=== PATIENT | female | born 1965 | race Caucasian/White ===

== ENCOUNTER 2016-10-23 22:09 | Emergency (ER) | payer OTHER ==
[~2016-10-23] VITALS: Ht 170.2 cm; Wt 51.8 kg
[2016-10-23 22:13] VITALS: BP 119/73; PULSE 85; RESP 16; O2SAT 99
--- NOTE | 2016-10-23 22:39 | ED.REPORT ---
HPI-Trauma Minor / Fall Date of Service Oct 23, 2016 ED Provider: Jalen Umanzor DO Pt is an otherwise healthy 51 year old female with a history of alcoholism who presents to the ED after a needle stick to her left 1st finger prior to arrival. She denies any other symptoms. 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 The pt attempted to treat the wound with rubbing alcohol. She reports that she is not an IV drug user. Nursing Notes Stated Complaint: DIRTY NEEDLE STICK Chief Complaint: General Complaint Nursing Notes Reviewed: Yes Allergies: Coded Allergies: aspirin (Verified Allergy, Severe, 11/13/14) codeine (Verified Allergy, Severe, 11/13/14) hydrocodone (Verified Allergy, Severe, 11/13/14) ibuprofen (Verified Allergy, Severe, 11/13/14) General Time Seen by MD: 22:35 Chief Complaint Other (Needle stick) Hx Obtained From: Patient Arrived By: Walk-in Onset Occurred: Just prior to arrival Symptom Duration: Since onset Location: Hand left Quality: Painful Severity: Current: Mild Severity: Maximum: Mild Recent Healthcare: No recent doctor visit, No recent hospitalization Similar Sx Previous: No Past Medical History Past Medical History hx of anorexia depression migraines (distant past) Past Surgical History none reported Smoking History Never Smoker Social History Alcohol Use: Denies alcohol use Drug Use: Denies drug use Other Social History: Ambulatory Status Independent Review of Systems Constitutional: Denies: Fever Respiratory: Denies: Non-productive cough, Shortness of breath Musculoskeletal: Reports: Extremity pain Complete sys rev & neg: except as marked. Physical Exam Initial Vital Signs Vital Signs (First) Date Time Temp Pulse Resp B/P Pulse Ox O2 Delivery O2 Flow Rate FiO2 10/23/16 22:13 36.8 85 16 119/73 99 Room Air Initial VS: Reviewed Head / Eyes: Atraumatic, Normocephalic ENT: No scleral icterus Respiratory: Clear to auscultation, No respiratory distress Cardiovascular: Regular rate & rhythm, Heart sounds normal, Intact distal pulses Extremities: Vascular intact, Neuro intact Skin: Warm, Dry, No cyanosis Neurologic: Alert, Oriented, Nonfocal Psychiatric: Mood/affect normal, Behavior normal General/Constitutional: Awake, Alert, Cooperative, Not toxic appearing Neck: Atraumatic, Supple, Full range of motion Wrist / Hand: Full range of motion, Neurologic intact, Vascular intact Small puncture wound in the 1st digit from a needle stick. Interpretation & Diagnostics Lab Results Interpretation Test 10/23/16 23:05 Re-Eval/Medical Decision Med Decision/Clinical Course Exposure 7 panel ordered. Rapid HIV ordered from the floor on the source blood. If positive recommend HIV prophylaxis. Otherwise recommend next day follow-up with employee health. Source of Hx: Old records Re-Evaluation/Progress : Time of Eval: 22:40 Re-Evaluation/Progress Note: Pt rechecked. Informed pt of plan for discharge. Pt understands and agrees with plan for discharge. F/U instructions and RTER warnings given. All questions addressed. Counseled Regarding: Diagnosis, Lab results, Need for follow-up, When/why to return to ED Discharge & Departure Impression: Primary Impression: Needlestick injury accident Encounter type: initial encounter Qualified Code: W27.3XXA - Contact with needle (sewing), initial encounter Disposition: Home Discharge Condition All VS Reviewed: Yes Condition: Stable Patient Instructions: Needle Stick Injuries (ED) Additional Instructions: Confirm the source blood is testing including rapid HIV. If it is positive, Problax is highly recommended. If not follow up with employee health. Return to the emergency department for any new or worsening symptoms. Referrals: Sherice Valerio MD (PCP) Scribe Attestation Portions of this note were transcribed by Aida Montoya. I, Dr. Umanzor personally performed the history, physical exam and medical decision-making; I reviewed and confirmed the accuracy of the information in the transcribed note. Signed by: Eusebio Celeste, 10/24/16 and 24:20 Jalen Umanzor DO Oct 23, 2016 22:39 Aida Stafford Oct 23, 2016 22:43
== END 2016-10-23 23:45 | disposition home or self-care (01) ==
LOC: SED 22:24
DX: S61.231A Puncture wound without foreign body of left index finger without damage to nail, initial encounter (principal); W46.1XXA Contact with contaminated hypodermic needle, initial encounter; Y92.239 Unspecified place in hospital as the place of occurrence of the external cause; Y93.89 Activity, other specified; Y99.0 Civilian activity done for income or pay; F32.9 Major depressive disorder, single episode, unspecified; F10.20 Alcohol dependence, uncomplicated; Z77.21 Contact with and (suspected) exposure to potentially hazardous body fluids; Z88.6 Allergy status to analgesic agent; Z88.5 Allergy status to narcotic agent
CPT/HCPCS: 36415; 86706; 87340; 99283; G0433